=== PATIENT | female | born 1945 | race African-American/Black ===

== ENCOUNTER 2017-09-28 08:32 | Observation (INO) | payer OTHER ==
[2017-09-28] VITALS (7 sets, daily range): BP systolic 138–176; BP diastolic 72–83; PULSE 77–92; RESP 16–18; TEMP 97.6–98.9; O2SAT 92–97
[~2017-09-28] VITALS: Ht 172.7 cm; Wt 127.0 kg
[~2017-09-28 08:32] MED LIST: ECOT81TA2 PO; GLUCTAB PO; HYDR12.56 PO; LINA145C PO; METO25 PO; MOTI25CH PO; NOVO7030P2 SQ; OMEP20TA PO; PRAV20TA67 PO; SYNT88TA PO; TREN400T PO; VASO10TA8 PO
[2017-09-28] MEDS ORDERED: LEVO50TA4 PO (08:56)
[2017-09-28] MEDS ORDERED: DICY10CA12 PO (08:56)
[2017-09-28] MEDS ORDERED: HYDR12.57 PO (08:56)
[2017-09-28] MEDS ORDERED: ASPI81TA23 PO (08:56)
[2017-09-28] MEDS ORDERED: METF500T PO (08:56)
[2017-09-28] MEDS ORDERED: NOVO7030P2 SQ (08:56)
[2017-09-28] MEDS ORDERED: LOVA40TA PO (08:56)
[2017-09-28] MEDS ORDERED: METO25TA3 PO (08:56)
[2017-09-28] MEDS ORDERED: FAMOTIDINE 20 MG/2 ML VIAL IV PUSH ONE ×2 (09:00→17:15)
[2017-09-28] MEDS ORDERED: diphenhydrAMINE HCL 50 MG/ML VIAL IVP ONE (09:00)
[2017-09-28] MEDS ORDERED: methylPREDNISolone SOD SUCC 125 MG/2 ML VIAL IV PUSH ONE (09:00)
[2017-09-28] MEDS ORDERED: SODIUM CHLORIDE 0.9% FLUSH 10 ML FLUSH IV FLUSH PRN ×2 (09:00→12:15)
--- NOTE | 2017-09-28 09:02 | PD ---
HPI Chief Complaint: ENT Complaint Time Seen by Provider: 08:56 Travel History International Travel<30 days: No Contact w/Intl Traveler<30days: No Traveled to known affect area: No History of Present Illness HPI 72-year-old female patient with multiple medical issues, currently on gabapentin because of neuropathy, had an allergic reaction to in the past, but was restarted 3 days ago by physician, and today woke up feeling like she is having sore throat, feels like her throat is swelling. She denies any difficulty swallowing, trouble breathing, or drooling. She denies any rashes or other issues. She states that the same thing has happened in the past when she took it. Modifying Factors: None Associated Signs & Symptoms: Throat swelling, discomfort after taking medication that she was allergic to in the past Risk Factors: None PFSH Past Medical History Arthritis: Yes Heart Rhythm Problems: No Cancer: Yes (UTERINE) Cardiac Catheterization: Yes Cardiovascular Problems: Yes ([place], [place]) High Cholesterol: Yes Chemotherapy: No Chest Pain: Yes (SINUS PAUSE) Congestive Heart Failure: No Cerebrovascular Accident: No Diabetes: Yes Patient Takes Glucophage: Yes Endocrine: Yes Gastrointestinal Disorders: Yes (GERD) GERD: Yes Genitourinary: No Headaches: Yes Hepatitis: No Hiatal Hernia: Yes Hypertension: Yes Immune Disorder: No Musculoskeletal: Yes (ARTHRITIS) Neurologic: Yes (VERTIGO) Psychiatric: No Reproductive: No Respiratory: Yes (SLEEP APNEA/ CPAP) Radiation Therapy: No Sleep Apnea: Yes ( ) Thyroid Disease: Yes Past Surgical History AICD: No Cardiac Surgery: Yes Coronary Artery Bypass Graft: No Gynecologic Surgery: Yes (TUBAL LIG., HYSTERECTOMY) Joint Replacement: No Pacemaker: No Other Surgery: Yes Family History Family Myocardial Infarction: Yes Social History Alcohol Use: No Tobacco Use: No Substance Use: No Allergies-Medications (Allergen,Severity, Reaction): Coded Allergies: Sulfa (Sulfonamide Antibiotics) (Unverified Allergy, Severe, Itching, 09/28) codeine (Unverified Allergy, Severe, 09/28/17) gabapentin (Verified Allergy, Severe, upper airway swelling, 09/28/17) penicillin G (Unverified Allergy, Severe, HIVES, 09/28/17) Reported Meds & Prescriptions Reported Meds & Active Scripts Active Reported Lovastatin 40 Mg Tab 40 Mg PO DAILY Novolin 70-30 Inj (Insulin Human Isoph/Insulin Regular) 1,000 Unit/10 Ml Vial 20 Units SQ DAILY Levothyroxine (Levothyroxine Sodium) 50 Mcg Tab 50 Mcg PO DAILY Metformin (Metformin HCl) 500 Mg Tab 500 Mg PO BIDPC Dicyclomine (Dicyclomine HCl) 10 Mg Cap 10 Mg PO QID Metoprolol Tartrate 25 Mg Tab 12.5 Mg PO BID Hydrochlorothiazide 12.5 Mg Cap 12.5 Mg PO DAILY Aspirin EC (Aspirin) 81 Mg Tabdr 81 Mg PO DAILY Review of Systems Except as stated in HPI: all other systems reviewed are Neg Physical Exam Narrative GENERAL: Well-developed elderly -Turkish female patient currently in mild distress. Awake and oriented 3. SKIN: Focused skin assessment warm/dry. HEAD: Atraumatic. Normocephalic. EYES: Pupils equal and round. No scleral icterus. No injection or drainage. ENT: Mucosa pink and moist. No erythema or exudates. But there is notable posterior pharyngeal edema. Airway patent. NECK: Trachea midline. No JVD. CARDIOVASCULAR: Regular rate and rhythm. No murmur appreciated. RESPIRATORY: No accessory muscle use. Clear to auscultation. Breath sounds equal bilaterally. GASTROINTESTINAL: Abdomen soft, non-tender, nondistended. Hepatic and splenic margins not palpable. MUSCULOSKELETAL: No obvious deformities. No clubbing. No cyanosis. No edema. NEUROLOGICAL: Awake and alert. No obvious cranial nerve deficits. Motor grossly within normal limits. Normal speech. PSYCHIATRIC: Appropriate mood and affect; insight and judgment normal. Data Data Last Documented VS Vital Signs Date Time Temp Pulse Resp B/P (MAP) Pulse Ox O2 Delivery O2 Flow Rate FiO2 09/28/17 09:51 77 17 138/74 (95) 96 Room Air 09/28/17 08:36 97.6 Orders Orders Ecg Monitoring (09/28/17 08:56) Iv Access Insert/Monitor (09/28/17 08:56) Oximetry (09/28/17 08:56) Diphenhydramine Inj (Benadryl Inj) (09/28/17 09:00) Methylprednisolone So Succ Inj (Solumedr (09/28/17 09:00) Famotidine Inj (Pepcid Inj) (09/28/17 09:00) Sodium Chloride 0.9% Flush (Ns Flush) (09/28/17 09:00) Basic Metabolic Panel (Bmp) (09/28/17 12:03) Complete Blood Count With Diff (09/28/17 12:03) Sodium Chloride 0.9% Flush (Ns Flush) (09/28/17 12:15) Admit Order (Ed Use Only) (09/28/17 12:26) Labs Laboratory Tests Test 09/28/17 12:00 [facility] Medical Decision Making Medical Screen Exam Complete: Yes Emergency Medical Condition: Yes Medical Record Reviewed: Yes Differential Diagnosis Allergic reaction Narrative Course I suspect that this is a allergic reaction to gabapentin. I have given her Solu -Medrol, Benadryl, and Zantac IV. Vital signs are stable and actually she is hypertensive. I want to be cautious with giving her epinephrine right now considering her cardiac history and fairly elevated blood pressure already. Patient was observed for 3 hours. Symptoms are improving and she was evaluated several times by me, however, she is still having some edema in the posterior pharynx. At this point, I am uncomfortable with releasing her the way she is. My plan would be to admit her as an observation for further evaluation and treatment. I have talked to Dr. Roche for admission. Diagnosis Primary Impression: Allergic reaction caused by a drug Admitting Information Admitting Physician Requests: Admit Balwinder Raphael MD Sep 28, 2017 09:02
[2017-09-28 12:30] LABS: AUTOMATED NEUTROPHIL # 4.3 TH/MM3 (1.8-7.7); BASOPHIL # 0.1 TH/MM3 (0-0.2); BASOPHIL % 1.3 % (0.0-2.0); EOSINOPHIL # 0.6 TH/MM3 (0-0.4); EOSINOPHIL % 6.6 % (0.0-4.0); HEMATOCRIT 41.5 % (35.0-46.0); HEMOGLOBIN 13.1 GM/DL (11.6-15.3); LYMPH % 41.4 % (9.0-44.0); LYMPHOCYTE # 3.9 TH/MM3 (1.0-4.8); MEAN CELL VOLUME 90.5 FL (80.0-100.0); MEAN CORPUSCULAR HEMOGLOBIN 28.7 PG (27.0-34.0); MEAN CORPUSCULAR HGB CONC 31.7 % (32.0-36.0); MEAN PLATELET VOLUME 9.1 FL (7.0-11.0); MONO % 5.2 % (0.0-8.0); MONOCYTE # 0.5 TH/MM3 (0-0.9); NEUT % 45.5 % (16.0-70.0); PLATELET COUNT 277 TH/MM3 (150-450); RED BLOOD COUNT 4.58 MIL/MM3 (4.00-5.30); RED CELL DISTRIBUTION WIDTH 14.2 % (11.6-17.2); WHITE BLOOD COUNT 9.4 TH/MM3 (4.0-11.0)
[2017-09-28 13:01] LABS: BICARBONATE 27.8 MEQ/L (21.0-32.0); CALCIUM 9.6 MG/DL (8.5-10.1); CREATININE 0.79 MG/DL (0.50-1.00)
--- NOTE | 2017-09-28 14:34 | HHI.HP ---
[facility] Primary Care Physician Loraine Low MD Admission Diagnosis Allergic reaction to gabapentin Diagnoses: Chief Complaint: Swollen tongue, trouble breathing Travel History International Travel<30 Days: No Contact w/Intl Traveler <30 Da: No Traveled to Known Affected Are: No History of Present Illness 72-year-old black female being admitted for angioedema Patient was in her usual state of health until sometime last night when she woke up being very short of breath, noted that her tongue was very swollen as well as her cheeks and her chin, felt like she could not breathe. She took her dentures out and still noted difficulty breathing at the level of her neck. Denies having any chest pain, nausea, vomiting, or diarrhea. Was brought to the emergency department by her daughter. In the emergency department she was noted to have an edematous posterior pharynx, was given IV Zantac, benadryl, and Solu-Medrol with partial improvement. Patient reports that she restarted taking gabapentin about 3 days ago with her last dose being at bedtime last night. Patient reports having similar episode sometime in the past when she started taking gabapentin. Per the ER physician report, the patient's PCP doubted the gabapentin causing her prior episode of angioedema and attempted to do another trial of it. Patient denies taking lisinopril. Denies being stung by any insect. Denies having any autoimmune diseases such as lupus or rheumatoid arthritis. Review of Systems Except as stated in HPI: all other systems reviewed are Neg Past Family Social History Past Medical History Diabetes Hypothyroidism CAD Allergies: Coded Allergies: Sulfa (Sulfonamide Antibiotics) (Unverified Allergy, Severe, Itching, 09/28) codeine (Unverified Allergy, Severe, 09/28/17) gabapentin (Verified Allergy, Severe, upper airway swelling, 09/28/17) penicillin G (Unverified Allergy, Severe, HIVES, 09/28/17) Family History Diabetes Social History Lives with her daughter, denies smoking, denies drinking Physical Exam Vital Signs Vital Signs Date Time Temp Pulse Resp B/P (MAP) Pulse Ox O2 Delivery O2 Flow Rate FiO2 09/28/17 13:49 97.7 92 16 176/83 (114) 96 09/28/17 09:51 77 17 138/74 (95) 96 Room Air 09/28/17 09:13 89 96 Room Air 09/28/17 08:36 97.6 78 18 172/81 (111) Physical Exam VS: afebrile GENERAL: Elderly obese black female, lying in bed, no acute distress SKIN: Warm and dry. EYES: No scleral icterus. No injection or drainage. ENT: No nasal bleeding or discharge. Mucous membranes pink and moist. Has dentures in place, after dentures are removed, still has mildly edematous soft palate and posterior pharynx, tongue is mildly edematous CARDIOVASCULAR: Regular rate and rhythm. 4/6 ejection murmur RESPIRATORY: No accessory muscle use. Clear to auscultation. Breath sounds equal bilaterally. GASTROINTESTINAL: Abdomen soft, non-tender, nondistended. Extremities: No clubbing, cyanosis, or edema. No obvious deformities. MUSCULOSKELETAL: adequate muscle bulk and tone for age and habitus NEUROLOGICAL: Awake and alert. No obvious cranial nerve deficits. No facial droop nor slurred speech noted. PSYCHIATRIC: Appropriate mood and affect; insight and judgment normal. Laboratory Laboratory Tests Test 09/28/17 12:00 White Blood Count 9.4 Red Blood Count 4.58 Hemoglobin 13.1 Hematocrit 41.5 Mean Corpuscular Volume 90.5 Mean Corpuscular Hemoglobin 28.7 Mean Corpuscular Hemoglobin Concent 31.7 Red Cell Distribution Width 14.2 Platelet Count 277 Mean Platelet Volume 9.1 Neutrophils (%) (Auto) 45.5 Lymphocytes (%) (Auto) 41.4 Monocytes (%) (Auto) 5.2 Eosinophils (%) (Auto) 6.6 Basophils (%) (Auto) 1.3 Neutrophils # (Auto) 4.3 Lymphocytes # (Auto) 3.9 Monocytes # (Auto) 0.5 Eosinophils # (Auto) 0.6 Basophils # (Auto) 0.1 CBC Comment DIFF FINAL Differential Comment Blood Urea Nitrogen 14 Creatinine 0.79 Random Glucose 85 Calcium Level 9.6 Sodium Level 138 Potassium Level 4.3 Chloride Level 102 Carbon Dioxide Level 27.8 Anion Gap 8 Estimat Glomerular Filtration Rate 86 Result Diagram: 09/28/17 1200 09/28/17 1200 Caprini VTE Risk Assessment Caprini VTE Risk Assessment: Mod/High Risk (score >= 2) Caprini Risk Assessment Model Point Value = 1 Point Value = 2 Point Value = 3 Point Value = 5 Age 41-60 Minor surgery BMI > 25 kg/m2 Swollen legs Varicose veins or History of unexplained or recurrent spontaneous Oral contraceptives or hormone replacement Sepsis (< 1 month) Serious lung disease, including pneumonia (< 1 month) Abnormal pulmonary function Acute myocardial infarction Congestive heart failure (< 1 month) History of inflammatory bowel disease Medical patient at bed rest Age 61-74 Arthroscopic surgery Major open surgery (> 45 min) Laparoscopic surgery (> 45 min) Malignancy Confined to bed (> 72 hours) Immobilizing plaster cast Central venous access Age >= 75 History of VTE Family history of VTE Factor V Leiden Prothrombin [id number] Lupus anticoagulant Anticardiolipin antibodies Elevated serum homocysteine Heparin-induced thrombocytopenia Other congenital or acquired thrombophilia Stroke (< 1 month) Elective arthroplasty Hip, pelvis, or leg fracture Acute spinal cord injury (< 1 month) Prophylaxis Regimen Total Risk Factor Score Risk Level Prophylaxis Regimen 0-1 Low Early ambulation 2 Moderate Order ONE of the following: *Sequential Compression Device (SCD) *Heparin 5000 units SQ BID 3-4 Higher Order ONE of the following medications: *Heparin 5000 units SQ TID *Enoxaparin/Lovenox 40 mg SQ daily (WT < 150 kg, CrCl > 30 mL/min) *Enoxaparin/Lovenox 30 mg SQ daily (WT < 150 kg, CrCl > 10-29 mL/min) *Enoxaparin/Lovenox 30 mg SQ BID (WT < 150 kg, CrCl > 30 mL/min) AND/OR *Sequential Compression Device (SCD) 5 or more Highest Order ONE of the following medications: *Heparin 5000 units SQ TID (Preferred with Epidurals) *Enoxaparin/Lovenox 40 mg SQ daily (WT < 150 kg, CrCl > 30 mL/min) *Enoxaparin/Lovenox 30 mg SQ daily (WT < 150 kg, CrCl > 10-29 mL/min) *Enoxaparin/Lovenox 30 mg SQ BID (WT < 150 kg, CrCl > 30 mL/min) AND *Sequential Compression Device (SCD) Assessment and Plan Assessment and Plan 72-year-old black female being admitted for angioedema Angioedema -Likely drug-induced, stabilized after ER, monitor for another 12 hours -We will administer additional Decadron tonight, keep on telemetry -Permanently avoid gabapentin at this point -Nursing bedside swallow as well as speech therapy evaluation, will perform a trial with clear liquids -may order additional benadryl and pepcid if flares up again Obstructive sleep apnea -CPAP/BiPAP tonight CAD/hypoTSH/HYL -May resume home Synthroid, Lopressor, aspirin if able to tolerate p.o. pills Diabetes -Start low-dose sliding scale with Accu-Cheks and start low-dose Levemir especially given that the patient will be on steroids Loveshayx Db Trejo MD Sep 28, 2017 14:34
[2017-09-28] MEDS ORDERED: DEXTROSE 50% IN WATER 50 ML VIAL(D50) IV PUSH PRN (14:45)
[2017-09-28] MEDS ORDERED: GLUCAGON 1 MG/ML VIAL OTHER PRN (14:45)
[2017-09-28] MEDS ORDERED: ACETAMINOPHEN 500 MG CPLT PO ONE (17:00)
[2017-09-28] MEDS ORDERED: RESP: ALBUTEROL 2.5 MG/IPRATROPIUM 0.5 MG NEB (SCH) NEB ONE (17:15)
[2017-09-28] MEDS ORDERED: diphenhydrAMINE HCL 50 MG/ML VIAL IM ONE (17:15)
[2017-09-28] MEDS: DICYCLOMINE HCL 10 MG CAP PO SCH ×2 (18:19→21:37)
[2017-09-28] MEDS: INSULIN NovoLIN REGULAR SUPPLEMENTAL SCALE SQ SCH ×2 (18:22→20:57)
[2017-09-28] MEDS ORDERED: INSULIN DETEMIR 100 UNITS/ML VIAL SQ SCH (21:00)
[2017-09-28] MEDS ORDERED: DEXAMETHASONE SOD PHOS 4 MG/ML VIAL IV PUSH ONE (21:00)
[2017-09-28] MEDS ORDERED: ENOXAPARIN SODIUM 30 MG/0.3 ML SYRINGE SQ SCH (21:00)
[2017-09-28] MEDS: METOPROLOL TARTRATE 25 MG TAB PO SCH (21:36)
[2017-09-29] VITALS (7 sets, daily range): BP systolic 124–157; BP diastolic 62–74; PULSE 60–87; RESP 18–19; TEMP 97.7–98.6; O2SAT 93–97
[2017-09-29] MEDS ORDERED: PRAVASTATIN SOD 40 MG TAB PO SCH (09:00)
[2017-09-29] MEDS ORDERED: LEVOTHYROXINE SODIUM 50 MCG TAB PO SCH (09:00)
[2017-09-29] MEDS ORDERED: HYDROCHLOROTHIAZIDE 12.5 MG CAP PO SCH (09:00)
[2017-09-29] MEDS ORDERED: ASPIRIN EC 81 MG TABEC PO SCH (09:00)
[2017-09-29] MEDS: INSULIN NovoLIN REGULAR SUPPLEMENTAL SCALE SQ SCH ×2 (09:20→13:11)
[2017-09-29] MEDS: DICYCLOMINE HCL 10 MG CAP PO SCH ×2 (09:21→13:11)
[2017-09-29] MEDS: METOPROLOL TARTRATE 25 MG TAB PO SCH (09:21)
--- NOTE | 2017-09-29 10:29 | HHI.PR ---
Subjective Remarks Follow up angioedema. Patient states that she feels much better today. No dyspnea. Ate breakfast with no difficulty. Wants to go home. Objective Vitals Vital Signs Date Time Temp Pulse Resp B/P (MAP) Pulse Ox O2 Delivery O2 Flow Rate FiO2 09/29/17 08:38 97.7 68 18 157/68 (97) 95 09/29/17 04:11 97 21 09/29/17 04:00 98.1 67 18 124/62 (82) 96 09/29/17 00:00 98.6 87 18 149/74 (99) 93 09/28/17 22:33 97 21 09/28/17 20:00 98.9 90 18 150/72 (98) 92 09/28/17 16:00 98.6 90 16 148/78 (101) 94 09/28/17 13:49 97.7 92 16 176/83 (114) 96 Result Diagram: 09/28/17 1200 09/28/17 1200 Objective Remarks General: Obese female in no acute distress. HEENT: Mild tenderness of the anterior neck. Heart: Regular rate and rhythm. No murmur. Lungs: Clear to auscultation bilaterally. No wheezes, rales, or rhonchi. Breathing is nonlabored. Abdomen: Soft, nontender, nondistended. Extremities: No lower extremity edema. Psych: Alert and oriented. Neuro: Normal speech. No focal deficits noted. Procedures None Urinary Catheter: No Vascular Central Line Catheter: No A/P Assessment and Plan 1. Angioedema: Likely secondary to gabapentin. Patient received Decadron. Symptoms have improved significantly. She passed her swallowing evaluation this morning. Tolerating diet. 2. Obstructive sleep apnea: CPAP at night. 3. Coronary artery disease: Asymptomatic. Continue beta-dee dee, aspirin. 4. Hyperlipidemia: Continue statin. 5. Hypothyroidism: Continue Synthroid. 6. Diabetes mellitus: Continue Levemir. Monitor Accu-Cheks and cover with sliding scale insulin. 7. Hypertension: Continue HCTZ, Lopressor. 8. DVT prophylaxis: Lovenox. Discharge Planning Discharge home in stable condition. Follow-up with PCP. Diabetic diet. Activity as tolerated. Hill Michelle MD Sep 29, 2017 10:29
[2017-09-29] MEDS ORDERED: ACETAMINOPHEN 500 MG CPLT PO PRN (10:30)
--- NOTE | 2017-09-29 10:31 | HHI.DCPOC ---
Discharge Care Plan Diagnosis: (1) Angioedema (2) Allergic reaction caused by a drug Goals to Promote Your Health * To prevent worsening of your condition and complications * To maintain your health at the optimal level Directions to Meet Your Goals Take your medications as prescribed Follow your dietary instruction Follow activity as directed Keep your appointments as scheduled Take your immunizations and boosters as scheduled If your symptoms worsen call your PCP, if no PCP go to Urgent Care Center or Emergency Room Smoking is Dangerous to Your Health. Avoid second hand smoke Call the 24-hour hour crisis hotline for domestic abuse at Hill Michelle MD Sep 29, 2017 10:30
[2017-09-29] MEDS ORDERED: EPIP0.3I IM (10:33)
[2017-09-29] MEDS ORDERED: PRED5PAK PO (10:33)
== END 2017-09-29 14:00 | disposition home or self-care (01) ==
LOC: NEPE 08:32 → NEDA 12:28 → N05B 13:47
PROVIDERS: ADMIT Family Medicine; ATTEND Family Medicine
DX: T78.3XXA Angioneurotic edema, initial encounter (principal); T42.6X5A Adverse effect of other antiepileptic and sedative-hypnotic drugs, initial encounter; G62.9 Polyneuropathy, unspecified; E11.9 Type 2 diabetes mellitus without complications; E03.9 Hypothyroidism, unspecified; I25.10 Atherosclerotic heart disease of native coronary artery without angina pectoris; G47.33 Obstructive sleep apnea (adult) (pediatric); E78.5 Hyperlipidemia, unspecified; I10 Essential (primary) hypertension
CPT/HCPCS: 80048; 82948; 85025; 92610; 94003; 94640; 96372; 96374; 96375; 96376; 99285; G0378; G8996; G8997; J1100; J1200; J1650; J2930

== ENCOUNTER 2017-11-24 17:16 | Observation (INO) ==
[2017-11-24] MEDS ORDERED: MethylPREDNISolone Sod Succinate Inj 125 MG/2 ML Vial IV.PUSH ONE (18:00)
[2017-11-24] MEDS ORDERED: Sod Chloride 0.9% Inj 1,000 ML IV.SIG ONE (18:01)
--- NOTE | 2017-11-24 18:06 | ED ---
HPI General Chief complaint: Allergic Reaction Stated complaint: Swelling to lips Time Seen by Provider: 11/24/17 17:54 Source: patient and family Mode of arrival: ambulatory Limitations: no limitations History of Present Illness HPI narrative: Patient is a 72-year-old female presenting to the emergency department for evaluation of a possible allergic reaction. Patient presents with edema to her upper lip, lower lip and left cheek adjacent to her lips. Patient states she feels some chest tightness but denies any shortness of breath , dysphasia or urticaria. Symptoms started 10 AM this morning. Patient has not taken any Benadryl prior to arrival. Patient states the same symptoms happened last month and they thought it was from an allergy to gabapentin however patient has not been taking this and the symptoms returned. Symptom onset was sudden, symptoms are moderate in nature. There are no alleviating factors, unknown exacerbating factors. MD complaint: allergic reaction and facial swelling Onset (ago): hour(s) Exposure: unknown Symptoms: facial swelling and lip swelling Severity: moderate Treatment prior to arrival: none Previous Allergic Reaction History: prior ED visit(s) and angioedema Related Data Home Medications Medication Instructions Recorded Confirmed aspirin 81 mg PO DAILY 11/24/17 11/24/17 dicyclomine 10 mg PO TID 11/24/17 11/24/17 dicyclomine 20 mg PO HS 11/24/17 11/24/17 hydrochlorothiazide 12.5 mg PO DAILY 11/24/17 11/24/17 insulin asp prt-insulin aspart 20 unit SUB-Q QAM 11/24/17 11/24/17 [Novolog Mix 70-30 U-100 Insuln] levothyroxine 50 mcg PO DAILY 11/24/17 11/24/17 lovastatin 40 mg PO QPM 11/24/17 11/24/17 metformin 500 mg PO BID 11/24/17 11/24/17 metoprolol tartrate 12.5 mg PO BID 11/24/17 11/24/17 polyethylene glycol 3350 [Miralax] 17 gm PO DAILY PRN 11/24/17 11/24/17 Allergies Allergy/AdvReac Type Severity Reaction Status Date / Time codeine Allergy Severe Hives Verified 11/24/17 18:21 gabapentin Allergy Severe upper Verified 09/28/17 08:58 airway swelling penicillin G Allergy Severe HIVES Verified 11/24/17 18:21 Sulfa (Sulfonamide Allergy Severe Itching Verified 11/24/17 18:21 Antibiotics) Review of Systems ROS: all other systems reviewed are negative Cardiovascular Reports chest pain PMFSH History History Provided By: Patient Medical History Medical History Diabetes (Acute) H/O: hysterectomy (Acute) HTN (hypertension) (Acute) High cholesterol (Acute) Thyroid disease (Acute) Surgical History Surgical History Hx of cholecystectomy (Acute) Total knee replacement status (Acute) Family History Family History Mother Hypertension Social History Social History Substance History: No History of Abuse Second Hand Smoke Exposure: No Smoking Status: Never smoker How Often Do You Have a Drink Containing Alcohol: Never Recent Travel in [facility] within the Last 8 Weeks: No Recent Out of Country Travel within the Last 8 Weeks: No Exam Narrative Exam Narrative: GENERAL: Obese, well-developed, alert -S[place]i female. Presenting in no acute distress. SKIN: Focused skin assessment warm/dry. HEAD: Atraumatic. Normocephalic. MOUTH: Mucous membranes moist, no lesions, tongue and gums appear normal. Angioedema to the upper lip and to the left lower lip and cheek. EYES: Pupils equal and round. No scleral icterus. No injection or drainage. ENT: No nasal bleeding or discharge. Mucous membranes pink and moist. Airway is patent, uvula midline. NECK: Trachea midline. No JVD. CARDIOVASCULAR: Regular rate and rhythm. No murmur appreciated. RESPIRATORY: No accessory muscle use. Clear to auscultation. Breath sounds equal bilaterally, diminished in bases. No stridor noted. GASTROINTESTINAL: Abdomen soft, non-tender, nondistended. Hepatic and splenic margins not palpable. MUSCULOSKELETAL: No obvious deformities. No clubbing. No cyanosis. No edema. NEUROLOGICAL: Awake and alert. No obvious cranial nerve deficits. Motor grossly within normal limits. Normal speech. PSYCHIATRIC: Appropriate mood and affect; insight and judgment normal. Course Initial Documented Vital Signs Temperature 98.3 F 11/24/17 17:23 Pulse Rate 85 11/24/17 17:23 Respiratory Rate 19 11/24/17 17:23 Blood Pressure 156/70 H 11/24/17 17:23 Pulse Oximetry 95 11/24/17 17:23 Last Documented Vital Signs Temperature 97.7 F 11/25/17 04:00 Pulse Rate 77 11/25/17 04:00 Respiratory Rate 16 11/25/17 04:00 Blood Pressure 119/57 L 11/25/17 04:00 Pulse Oximetry 97 11/25/17 04:00 Medical Decision Making PATRICIA Attestation PATRICIA supervised visit: Yes Attestation: I, Dr. Ashley, have reviewed the advance practice practitioner's documentation and am in agreement, met with the patient face to face, made the diagnosis, and the medical decision making was done by me. *My assessment and Findings: angioedema - she has received epi, dexamethasone, pepcid as well as benadryl MDM Narrative Medical decision making narrative: Patient is presenting with angioedema started 10 AM this morning. Patient's vital signs are stable, her airway is patent. Patient was given Solu-Medrol, Benadryl, epinephrine. IV fluids and chest x-ray ordered. IV access was established, patient was placed on telemetry monitoring continuous pulse oximetry. Labs reviewed, no acute findings in a fight. Specifically patient has no eosinophilia. Patient reported that her sister also has recurring angioedema. Patient was reassessed, the edema started to resolve, patient reports feeling better. Patient will be kept under observation. Discussed with Dr. Orellana who accepted admission. Patient and family advised on plan of care, patient is agreeable to plan. Differential Diagnosis Differential Diagnosis: Angioedema versus anaphylaxis versus allergic reaction versus contact dermatitis versus other Medical Records Medical records reviewed: Yes I reviewed the patient's medical records. Lab Data Result diagrams: 11/24/17 18:13 11/24/17 18:13 Lab Results 11/24/17 11/24/17 11/24/17 Range/Units 18:13 18:13 18:13 WBC 9.2 (4.0-11.0) th/mm3 RBC 4.45 (4.00-5.30) mil/mm3 Hgb 12.8 (11.6-15.3) gm/dL Hct 40.0 (35.0-46.0) % MCV 89.9 (80.0-100.0) fL MCH 28.8 (27.0-34.0) pg MCHC 32.0 (32.0-36.0) % RDW 14.4 (11.6-17.2) % Plt Count 276 (150-450) th/mm3 MPV 8.4 (7.0-11.0) fL Neut % (Auto) 78.7 H (16.0-70.0) % Lymph % (Auto) 16.7 (9.0-44.0) % Davison % (Auto) 2.8 (0.0-8.0) % Eos % (Auto) 1.0 (0.0-4.0) % Baso % (Auto) 0.8 (0.0-2.0) % Neut # (Auto) 7.3 (1.8-7.7) th/mm3 Lymph # (Auto) 1.5 (1.0-4.8) th/mm3 Davison # (Auto) 0.3 (0.0-0.9) th/mm3 Eos # (Auto) 0.1 (0.0-0.4) th/mm3 Baso # (Auto) 0.1 (0.0-0.2) th/mm3 WBC Differential . Differential Comment Auto diff final Sodium 137 (136-145) meq/L Potassium 4.3 (3.5-5.1) meq/L Chloride 100 (98-107) meq/L Carbon Dioxide 27.6 (21.0-32.0) meq/L Anion Gap 9 (5-15) meq/L BUN 15 (7-18) mg/dL Creatinine 0.89 (0.50-1.00) mg/dL Estimated GFR 75 L (>89) mL/min POC Glucose (68-110) mg/dl Random Glucose 137 H (74-106) mg/dL Calcium 9.7 (8.5-10.1) mg/dL Total Bilirubin 0.3 (0.2-1.0) mg/dL AST 18 (15-37) U/L ALT 16 (10-53) U/L Alkaline Phosphatase 84 (45-117) U/L Troponin I Less than 0.02 L (0.02-0.05) ng/mL Total Protein 7.7 (6.4-8.2) g/dL Albumin 3.6 (3.4-5.0) g/dL TSH (0.358-3.740) uIU/mL 11/24/17 11/24/17 Range/Units 18:13 22:38 WBC (4.0-11.0) th/mm3 RBC (4.00-5.30) mil/mm3 Hgb (11.6-15.3) gm/dL Hct (35.0-46.0) % MCV (80.0-100.0) fL MCH (27.0-34.0) pg MCHC (32.0-36.0) % RDW (11.6-17.2) % Plt Count (150-450) th/mm3 MPV (7.0-11.0) fL Neut % (Auto) (16.0-70.0) % Lymph % (Auto) (9.0-44.0) % Davison % (Auto) (0.0-8.0) % Eos % (Auto) (0.0-4.0) % Baso % (Auto) (0.0-2.0) % Neut # (Auto) (1.8-7.7) th/mm3 Lymph # (Auto) (1.0-4.8) th/mm3 Davison # (Auto) (0.0-0.9) th/mm3 Eos # (Auto) (0.0-0.4) th/mm3 Baso # (Auto) (0.0-0.2) th/mm3 WBC Differential Differential Comment Sodium (136-145) meq/L Potassium (3.5-5.1) meq/L Chloride (98-107) meq/L Carbon Dioxide (21.0-32.0) meq/L Anion Gap (5-15) meq/L BUN (7-18) mg/dL Creatinine (0.50-1.00) mg/dL Estimated GFR (>89) mL/min POC Glucose 212 H (68-110) mg/dl Random Glucose (74-106) mg/dL Calcium (8.5-10.1) mg/dL Total Bilirubin (0.2-1.0) mg/dL AST (15-37) U/L ALT (10-53) U/L Alkaline Phosphatase (45-117) U/L Troponin I (0.02-0.05) ng/mL Total Protein (6.4-8.2) g/dL Albumin (3.4-5.0) g/dL TSH 0.846 (0.358-3.740) uIU/mL Imaging Data Radiologist's impression: Chest X-Ray 11/24/17 18:00 CONCLUSION: No acute cardiopulmonary disease. Discharge Plan Discharge Disposition Patient Disposition: 30 Still Patient Discharge Condition Condition: Stable Discharge Details Diagnosis: Angio-edema Physicians Team ED Provider: Gisele Ashley ED Midlevel Provider: Tali Laura Primary Care Provider: Loraine Low Attending Provider: Rian Cardona Status ED Status: Left Department Discharge Information Discharge Date/Time: 11/24/17 21:25
--- NOTE | 2017-11-24 18:26 | XR ---
EXAM DATE: 11/24/2017 6:18 PM EDT AGE/SEX: 72 years / Female INDICATIONS: Short of breath. CLINICAL DATA: This is the patient's initial encounter. Patient reports that signs and symptoms have been present for 1 day and indicates a pain score of 0/10. MEDICAL/SURGICAL HISTORY: None. None. COMPARISON: [facility] – [place] AP, 06/14/2012. . FINDINGS: A single AP view of the chest demonstrates the lungs to be symmetrically aerated without evidence of mass, infiltrate or effusion. The cardiomediastinal contours are unremarkable. Osseous structures a re intact. CONCLUSION: No acute cardiopulmonary disease. Electronically signed by: Neto Mcmillan MD 11/24/2017 6:25 PM EDT
[2017-11-24 18:33] LABS: Hemoglobin 12.8 gm/dL (11.6-15.3); Lymph % (Auto) 16.7 % (9.0-44.0); Mean Corpuscular Hemoglobin 28.8 pg (27.0-34.0); Mean Corpuscular Volume 89.9 fL (80.0-100.0); Mean Platelet Volume 8.4 fL (7.0-11.0); Mono % (Auto) 2.8 % (0.0-8.0); Neut % (Auto) 78.7 % (16.0-70.0); Platelet Count 276 th/mm3 (150-450); Red Blood Count 4.45 mil/mm3 (4.00-5.30); Red Cell Distribution Width 14.4 % (11.6-17.2); White Blood Count 9.2 th/mm3 (4.0-11.0)
[2017-11-24 18:34] LABS: Baso # (Auto) 0.1 th/mm3 (0.0-0.2); Baso % (Auto) 0.8 % (0.0-2.0); Eos # (Auto) 0.1 th/mm3 (0.0-0.4); Lymph # (Auto) 1.5 th/mm3 (1.0-4.8); Mono # (Auto) 0.3 th/mm3 (0.0-0.9); Neut # (Auto) 7.3 th/mm3 (1.8-7.7)
[2017-11-24 18:40] LABS: Albumin 3.6 g/dL (3.4-5.0); Anion Gap 9 meq/L (5-15); Aspartate Aminotransferase 18 U/L (15-37); Blood Urea Nitrogen 15 mg/dL (7-18); Calcium 9.7 mg/dL (8.5-10.1); Carbon Dioxide 27.6 meq/L (21.0-32.0); Chloride 100 meq/L (98-107); Glomerular Filtration Rate 75 mL/min (>89); Glucose,Random 137 mg/dL (74-106); Potassium 4.3 meq/L (3.5-5.1); Sodium 137 meq/L (136-145)
[2017-11-24 18:41] LABS: Alanine Aminotransferase 16 U/L (10-53)
[2017-11-24 18:43] LABS: Alkaline Phosphatase 84 U/L (45-117); Total Protein 7.7 g/dL (6.4-8.2)
[2017-11-24] MEDS ORDERED: Acetaminophen 325 MG Tablet PO PRN (21:02)
[2017-11-24] MEDS ORDERED: Dextrose 50% in Water 50 ML Vial IV.PUSH PRN (21:05)
[2017-11-24] MEDS ORDERED: Dicyclomine 10 MG Capsule PO SCH (21:15)
--- NOTE | 2017-11-24 21:17 | P.HPIM ---
History of Present Illness Primary Care Physician: Loraine Low MD History of Present Illness: 72 y/o female with a histroy of DM, HLD, HTN, and hypothyroid presented to the ED with complaints of upper lip swelling. Patient states began this morning after she had taken all her medications prior to breakfast, states her upper lip and left side of her cheek started to swell and she was unable to drink her coffee. She states this did happen one month ago and was found the gabapentin was the issue. She denies any new meds or any changes in any foods that she has been eating. She denies any chest pain, sob, fever or chills. Review of Systems All other systems reviewed negative except as stated in HPI PMFSH - History History Provided By: Patient - Medical History Medical History: Medical History (Last Reviewed 11/24/17 @ 18:09 by JOSE Vazquez) Diabetes H/O: hysterectomy HTN (hypertension) High cholesterol Thyroid disease - Surgical History Surgical History: Surgical History (Last Reviewed 11/24/17 @ 18:09 by JOSE Vazquez) Hx of cholecystectomy Total knee replacement status - Family History Family History: Family History (Last Updated 11/24/17 @ 21:11 by JOSE Lino) Mother Hypertension - Tobacco History Second Hand Smoke Exposure: No Smoking Status: Never smoker - Alcohol History How Often Do You Have a Drink Containing Alcohol: Never - Substance Use History Substance History: No History of Abuse - Travel History Recent Travel in the [place] Within the Last 8 Weeks: No Recent Travel Out of the Country Within the Last 8 Weeks: No - Immunization History Tetanus Immunization: Unsure Hx Influenza Vaccine This Season: Yes Medications and Allergies Active Medications: Active Medications Acetaminophen (Tylenol) 650 mg PO Q4H PRN PRN Reason: Temp > 100.4 Aspirin (Ecotrin) 81 mg PO DAILY INDIO Dextrose (D50w Vial) 50 ml IV.PUSH UNSCH PRN PRN Reason: PER HYPOGLYCEMIA PROTOCOL Dicyclomine HCl (Bentyl) 10 mg PO TID INDIO Dicyclomine HCl (Bentyl) 20 mg PO HS INDIO Glucagon (Glucagon Inj) 1 mg OTHER PRN PRN PRN Reason: for Hypoglycemia Protocol Insulin Aspart (Novolog Mix 70/30 Inj) 20 units SQ QAM [facility]IO Levothyroxine Sodium (Synthroid) 50 mcg PO DAILY [facility]IO Metformin HCl (Glucophage) 500 mg PO BID [facility] Metoprolol Tartrate (Lopressor) 12.5 mg PO BID [facility] Non-Formulary Medication (Hydrochlorothiazide [Hydrochlorothiazide]) 12.5 mg PO DAILY [facility] Non-Formulary Medication (Lovastatin [Lovastatin]) 40 mg PO QPM [facility] Ondansetron HCl (Zofran Inj) 4 mg IV.PUSH Q6H PRN PRN Reason: NAUSEA OR VOMITING Polyethylene Glycol (Miralax) 17 gm PO DAILY PRN PRN Reason: Constipation Sodium Chloride (Ns Flush) 2 ml IV.FLUSH PRN PRN PRN Reason: FLUSH AFTER USING IV ACCESS Allergies Allergy/AdvReac Type Severity Reaction Status Date / Time codeine Allergy Severe Hives Verified 11/24/17 18:21 gabapentin Allergy Severe upper Verified 09/28/17 08:58 airway swelling penicillin G Allergy Severe HIVES Verified 11/24/17 18:21 Sulfa (Sulfonamide Allergy Severe Itching Verified 11/24/17 18:21 Antibiotics) Home Medications Medication Instructions Recorded Confirmed Type aspirin 81 mg PO DAILY 11/24/17 11/24/17 History dicyclomine 10 mg PO TID 11/24/17 11/24/17 History dicyclomine 20 mg PO HS 11/24/17 11/24/17 History hydrochlorothiazide 12.5 mg PO DAILY 11/24/17 11/24/17 History insulin asp prt-insulin aspart 20 unit SUB-Q QAM 11/24/17 11/24/17 History [Novolog Mix 70-30 U-100 Insuln] levothyroxine 50 mcg PO DAILY 11/24/17 11/24/17 History lovastatin 40 mg PO QPM 11/24/17 11/24/17 History metformin 500 mg PO BID 11/24/17 11/24/17 History metoprolol tartrate 12.5 mg PO BID 11/24/17 11/24/17 History polyethylene glycol 3350 [Miralax] 17 gm PO DAILY PRN 11/24/17 11/24/17 History Exam Vital signs: Vital Signs 11/24/17 17:23 11/24/17 18:06 11/24/17 18:15 Temperature 98.3 F Pulse Rate 85 81 Respiratory Rate 19 18 Blood Pressure 156/70 H 150/83 H Pulse Oximetry 95 96 96 Intake & Output 11/24/17 11/24/17 11/25/17 06:59 18:59 06:59 Weight 122.47 kg Narrative: GENERAL: This is a well-nourished, well-developed patient, in no apparent distress. SKIN: Angioedema to upper lip EYES: Pupils equal round and reactive, no scleral edema or drainage CARDIOVASCULAR: Regular rate and rhythm without murmurs, gallops, or rubs. RESPIRATORY: Clear to auscultation. Breath sounds equal bilaterally. No wheezes , rales, or rhonchi. GASTROINTESTINAL: Abdomen soft, non-tender, nondistended. Normal active bowel sounds MUSCULOSKELETAL: Extremities without clubbing, cyanosis, or edema. NEURO: Alert & Oriented x4 to person, place, time, situation. Moves all ext x4 Results - Labs CBC & Chem 7: 11/24/17 18:13 11/24/17 18:13 Labs: Short CBC 11/24/17 Range/Units 18:13 WBC 9.2 (4.0-11.0) th/mm3 Hgb 12.8 (11.6-15.3) gm/dL Hct 40.0 (35.0-46.0) % Plt Count 276 (150-450) th/mm3 BMP 11/24/17 18:13 Sodium 137 Potassium 4.3 Chloride 100 Carbon Dioxide 27.6 BUN 15 Creatinine 0.89 Calcium 9.7 Liver Function 11/24/17 Range/Units 18:13 Total Bilirubin 0.3 (0.2-1.0) mg/dL AST 18 (15-37) U/L ALT 16 (10-53) U/L Alkaline Phosphatase 84 (45-117) U/L Albumin 3.6 (3.4-5.0) g/dL - Imaging Impressions Chest X-Ray 11/24/17 18:00 CONCLUSION: No acute cardiopulmonary disease. Caprini VTE Risk Assessment Caprini VTE Risk Assessment: No/Low Risk (score <= 1) Caprini Risk Assessment Model: Point Value = 1 Point Value = 2 Point Value = 3 Point Value = 5 Age 41-60 Minor surgery BMI > 25 kg/m2 Swollen legs Varicose veins or History of unexplained or recurrent spontaneous Oral contraceptives or hormone replacement Sepsis (< 1 month) Serious lung disease, including pneumonia (< 1 month) Abnormal pulmonary function Acute myocardial infarction Congestive heart failure (< 1 month) History of inflammatory bowel disease Medical patient at bed rest Age 61-74 Arthroscopic surgery Major open surgery (> 45 min) Laparoscopic surgery (> 45 min) Malignancy Confined to bed (> 72 hours) Immobilizing plaster cast Central venous access Age >= 75 History of VTE Family history of VTE Factor V Leiden Prothrombin [id number] Lupus anticoagulant Anticardiolipin antibodies Elevated serum homocysteine Heparin-induced thrombocytopenia Other congenital or acquired thrombophilia Stroke (< 1 month) Elective arthroplasty Hip, pelvis, or leg fracture Acute spinal cord injury (< 1 month) Prophylaxis Regimen: Total Risk Factor Score Risk Level Prophylaxis Regimen 0-1 Low Early ambulation 2 Moderate Order ONE of the following: *Sequential Compression Device (SCD) *Heparin 5000 units SQ BID 3-4 Higher Order ONE of the following medications: *Heparin 5000 units SQ TID *Enoxaparin/Lovenox 40 mg SQ daily (WT < 150 kg, CrCl > 30 mL/min) *Enoxaparin/Lovenox 30 mg SQ daily (WT < 150 kg, CrCl > 10-29 mL/min) *Enoxaparin/Lovenox 30 mg SQ BID (WT < 150 kg, CrCl > 30 mL/min) AND/OR *Sequential Compression Device (SCD) 5 or more Highest Order ONE of the following medications: *Heparin 5000 units SQ TID (Preferred with Epidurals) *Enoxaparin/Lovenox 40 mg SQ daily (WT < 150 kg, CrCl > 30 mL/min) *Enoxaparin/Lovenox 30 mg SQ daily (WT < 150 kg, CrCl > 10-29 mL/min) *Enoxaparin/Lovenox 30 mg SQ BID (WT < 150 kg, CrCl > 30 mL/min) AND *Sequential Compression Device (SCD) Assessment and Plan - Plan 72 y/o female with a histroy of DM, HLD, HTN, and hypothyroid presented to the ED with complaints of upper lip swelling. Angioedema, patient with upper lip swelling Unknown etiology -Epinephrine, Solu-Medrol and Benadryl given in the ED, with improvement -Continue Solu-Medrol in Benadryl every 6 -Patient may benefit from outpatient digital media specialist -Check TSH Hypertension, chronic -Resume home medications, monitor vitals Diabetes, chronic -Resume home medications -Serial Accu-Cheks -Diabetic diet DVT prophylaxis: SCDs Discussed Condition With: Patient and RN
[2017-11-24] MEDS ORDERED: Polyethylene Glycol 3350 17 GM Packet PO PRN (22:00)
[2017-11-24] MEDS: MethylPREDNISolone Sod Succinate Inj 40 MG/ML Vial IV.PUSH SCH (23:02)
[2017-11-24] MEDS: Metoprolol Tartrate 25 MG Tablet PO SCH (23:02)
[2017-11-24] MEDS: Insulin Aspart Prot 70/30 1,000 UNITS/10 ML Vial SQ SCH (23:53)
[2017-11-25] MEDS ORDERED: Levothyroxine 50 MCG Tablet PO SCH (06:00)
[2017-11-25] MEDS: MethylPREDNISolone Sod Succinate Inj 40 MG/ML Vial IV.PUSH SCH ×2 (06:02→13:09)
[2017-11-25 07:39] LABS: Baso % (Auto) 0.2 % (0.0-2.0); Eos % (Auto) 0.1 % (0.0-4.0); Lymph # (Auto) 1.1 th/mm3 (1.0-4.8); Lymph % (Auto) 15.3 % (9.0-44.0); Mean Corpuscular HGB Conc 32.3 % (32.0-36.0); Mean Corpuscular Hemoglobin 29.4 pg (27.0-34.0); Mean Platelet Volume 9.1 fL (7.0-11.0); Mono # (Auto) 0.1 th/mm3 (0.0-0.9); Mono % (Auto) 1.2 % (0.0-8.0); Neut # (Auto) 6.2 th/mm3 (1.8-7.7); Neut % (Auto) 83.2 % (16.0-70.0); Platelet Count 251 th/mm3 (150-450); Red Blood Count 4.07 mil/mm3 (4.00-5.30); White Blood Count 7.5 th/mm3 (4.0-11.0)
[2017-11-25 07:53] LABS: Calcium 9.3 mg/dL (8.5-10.1); Carbon Dioxide 25.9 meq/L (21.0-32.0); Potassium 4.1 meq/L (3.5-5.1)
[2017-11-25] MEDS ORDERED: Dicyclomine 10 MG Capsule PO SCH (09:00)
[2017-11-25] MEDS: Metoprolol Tartrate 25 MG Tablet PO SCH (09:07)
[2017-11-25] MEDS: Insulin Aspart Prot 70/30 1,000 UNITS/10 ML Vial SQ SCH (09:08)
--- NOTE | 2017-11-25 12:32 | P.PN ---
Subjective Interval history: Patient is seen sitting on bed. She tells me that she is doing much better and she feels like her lip swelling is almost gone. Denies any difficulty swallowing or breathing. Physical Exam Vital signs: Vital Signs 11/24/17 17:23 11/24/17 18:06 11/24/17 18:15 Temperature 98.3 F Pulse Rate 85 81 Respiratory Rate 19 18 Blood Pressure 156/70 H 150/83 H Pulse Oximetry 95 96 96 11/24/17 22:34 11/25/17 04:00 11/25/17 08:00 Temperature 98.1 F 97.7 F 98.1 F Pulse Rate 85 77 93 H Respiratory Rate 18 16 20 Blood Pressure 140/75 119/57 L 182/79 H Pulse Oximetry 95 97 95 Intake & Output 11/24/17 11/25/17 11/25/17 18:59 06:59 18:59 Weight 122.47 kg Other: # Voids 2 Date of Last Bowel Movement 11/25/17 # Bowel Movements 1 Narrative: GENERAL: Well-nourished, well-developed adult female in no obvious distress. SKIN: Warm and dry. HEAD: Atraumatic. Normocephalic. CARDIOVASCULAR: Regular rate and rhythm. RESPIRATORY: No accessory muscle use. Clear to auscultation. Breath sounds equal bilaterally. GASTROINTESTINAL: Abdomen soft, non-tender, non-distended. Positive bowel sounds. MUSCULOSKELETAL: Extremities without clubbing, cyanosis, or edema. No obvious deformities. NEUROLOGICAL: Awake and alert. No obvious cranial nerve deficits. Motor grossly within normal limits. Normal speech. PSYCHIATRIC: Appropriate mood and affect; insight and judgment good. Results - Labs CBC & Chem 7: 11/25/17 06:00 11/25/17 06:00 Laboratory Results - last 24 hr 11/24/17 11/24/17 11/24/17 18:13 18:13 18:13 WBC 9.2 RBC 4.45 Hgb 12.8 Hct 40.0 MCV 89.9 MCH 28.8 MCHC 32.0 RDW 14.4 Plt Count 276 MPV 8.4 Neut % (Auto) 78.7 H Lymph % (Auto) 16.7 Burnett % (Auto) 2.8 Eos % (Auto) 1.0 Baso % (Auto) 0.8 Neut # (Auto) 7.3 Lymph # (Auto) 1.5 Burnett # (Auto) 0.3 Eos # (Auto) 0.1 Baso # (Auto) 0.1 WBC Differential . Differential Comment Auto diff final Sodium 137 Potassium 4.3 Chloride 100 Carbon Dioxide 27.6 Anion Gap 9 BUN 15 Creatinine 0.89 Estimated GFR 75 L POC Glucose Random Glucose 137 H Calcium 9.7 Total Bilirubin 0.3 AST 18 ALT 16 Alkaline Phosphatase 84 Troponin I Less than 0.02 L Total Protein 7.7 Albumin 3.6 TSH 11/24/17 11/24/17 11/25/17 18:13 22:38 06:00 WBC 7.5 RBC 4.07 Hgb 12.0 Hct 37.0 MCV 91.0 MCH 29.4 MCHC 32.3 RDW 14.0 Plt Count 251 MPV 9.1 Neut % (Auto) 83.2 H Lymph % (Auto) 15.3 Burnett % (Auto) 1.2 Eos % (Auto) 0.1 Baso % (Auto) 0.2 Neut # (Auto) 6.2 Lymph # (Auto) 1.1 Burnett # (Auto) 0.1 Eos # (Auto) 0.0 Baso # (Auto) 0.0 WBC Differential . Differential Comment Auto diff final Sodium Potassium Chloride Carbon Dioxide Anion Gap BUN Creatinine Estimated GFR POC Glucose 212 H Random Glucose Calcium Total Bilirubin AST ALT Alkaline Phosphatase Troponin I Total Protein Albumin TSH 0.846 11/25/17 11/25/17 06:00 08:22 WBC RBC Hgb Hct MCV MCH MCHC RDW Plt Count MPV Neut % (Auto) Lymph % (Auto) Burnett % (Auto) Eos % (Auto) Baso % (Auto) Neut # (Auto) Lymph # (Auto) Burnett # (Auto) Eos # (Auto) Baso # (Auto) WBC Differential Differential Comment Sodium 137 Potassium 4.1 Chloride 102 Carbon Dioxide 25.9 Anion Gap 9 BUN 15 Creatinine 0.88 Estimated GFR 76 L POC Glucose 197 H Random Glucose 146 H Calcium 9.3 Total Bilirubin AST ALT Alkaline Phosphatase Troponin I Total Protein Albumin TSH - Imaging Impressions Chest X-Ray 11/24/17 18:00 CONCLUSION: No acute cardiopulmonary disease. Assessment and Plan - Plan 72 y/o female with a histroy of DM, HLD, HTN, and hypothyroid presented to the ED with complaints of upper lip swelling. Angioedema, patient with upper lip swelling Unknown etiology -Improved. We will discharge today with Benadryl, Pepcid and 5 day course of prednisone. Patient to follow-up with her primary care for possible allergy testing. She tells me she does have an EpiPen. Hypertension, chronic -Resume home medications, monitor vitals Diabetes, chronic -Resume home medications -Serial Accu-Cheks -Diabetic diet DVT prophylaxis: SCDs Discussed Condition With: Patient and RN
--- NOTE | 2017-11-25 12:34 | P.DS ---
Date of admission: 11/24/17 19:39 Primary care physician: Loraine Low MD Attending physician on discharge: Rian Cardona Anticipated date of discharge: 11/25/17 Brief History from admission: 72 y/o female with a histroy of DM, HLD, HTN, and hypothyroid presented to the ED with complaints of upper lip swelling. Patient states began this morning after she had taken all her medications prior to breakfast, states her upper lip and left side of her cheek started to swell and she was unable to drink her coffee. She states this did happen one month ago and was found the gabapentin was the issue. She denies any new meds or any changes in any foods that she has been eating. She denies any chest pain, sob, fever or chills. DS: Diagnosis - Discharge Diagnosis (1) Angio-edema Status: Resolved DS: Summary Hospital Course: Patient is a 72-year-old -German female with a past medical history of diabetes, hyperlipidemia hypertension and hypothyroidism who came to the emergency room with a complaint of upper lip swelling. She denies starting any new medications or trying any new foods soaps or lotions. She does remember going to get an x-ray and think she may have come in contact with some cleaning fluid there. She has had one previous episode of facial and throat swelling in April 2017 which was attributed to gabapentin. Angioedema responded well to epinephrine, Solu-Medrol and Benadryl. She tells me that she does have an EpiPen that was issued to her in April with her initial episode of swelling. - Time Spent with Patient Total time spent providing and/or coordinating discharge services: Less than 30 minutes - Quality: VTE Deep Vein Thrombosis/Pulmonary Embolism Present on Admission: No Exam Vital signs: Vital Signs 11/24/17 17:23 11/24/17 18:06 11/24/17 18:15 Temperature 98.3 F Pulse Rate 85 81 Respiratory Rate 19 18 Blood Pressure 156/70 H 150/83 H Pulse Oximetry 95 96 96 11/24/17 22:34 11/25/17 04:00 11/25/17 08:00 Temperature 98.1 F 97.7 F 98.1 F Pulse Rate 85 77 93 H Respiratory Rate 18 16 20 Blood Pressure 140/75 119/57 L 182/79 H Pulse Oximetry 95 97 95 Intake & Output 11/24/17 11/25/17 11/25/17 18:59 06:59 18:59 Weight 122.47 kg Other: # Voids 2 Date of Last Bowel Movement 11/25/17 # Bowel Movements 1 Narrative: GENERAL: Well-nourished, well-developed adult female in no obvious distress. SKIN: Warm and dry. HEAD: Atraumatic. Normocephalic. CARDIOVASCULAR: Regular rate and rhythm. RESPIRATORY: No accessory muscle use. Clear to auscultation. Breath sounds equal bilaterally. GASTROINTESTINAL: Abdomen soft, non-tender, non-distended. Positive bowel sounds. MUSCULOSKELETAL: Extremities without clubbing, cyanosis, or edema. No obvious deformities. NEUROLOGICAL: Awake and alert. No obvious cranial nerve deficits. Motor grossly within normal limits. Normal speech. PSYCHIATRIC: Appropriate mood and affect; insight and judgment good. Results Procedures completed during hospitalization: none Labs on day of discharge: Labs from last 24 hours 11/25/17 11/25/17 11/25/17 08:22 06:00 06:00 WBC 7.5 RBC 4.07 Hgb 12.0 Hct 37.0 MCV 91.0 MCH 29.4 MCHC 32.3 RDW 14.0 Plt Count 251 MPV 9.1 Neut % (Auto) 83.2 H Lymph % (Auto) 15.3 Angelina % (Auto) 1.2 Eos % (Auto) 0.1 Baso % (Auto) 0.2 Neut # (Auto) 6.2 Lymph # (Auto) 1.1 Angelina # (Auto) 0.1 Eos # (Auto) 0.0 Baso # (Auto) 0.0 WBC Differential . Differential Comment Auto diff final Sodium 137 Potassium 4.1 Chloride 102 Carbon Dioxide 25.9 Anion Gap 9 BUN 15 Creatinine 0.88 Estimated GFR 76 L POC Glucose 197 H Random Glucose 146 H Calcium 9.3 Total Bilirubin AST ALT Alkaline Phosphatase Troponin I Total Protein Albumin TSH 11/24/17 11/24/17 11/24/17 22:38 18:13 18:13 WBC RBC Hgb Hct MCV MCH MCHC RDW Plt Count MPV Neut % (Auto) Lymph % (Auto) Angelina % (Auto) Eos % (Auto) Baso % (Auto) Neut # (Auto) Lymph # (Auto) Angelina # (Auto) Eos # (Auto) Baso # (Auto) WBC Differential Differential Comment Sodium Potassium Chloride Carbon Dioxide Anion Gap BUN Creatinine Estimated GFR POC Glucose 212 H Random Glucose Calcium Total Bilirubin AST ALT Alkaline Phosphatase Troponin I Less than 0.02 L Total Protein Albumin TSH 0.846 11/24/17 11/24/17 18:13 18:13 WBC 9.2 RBC 4.45 Hgb 12.8 Hct 40.0 MCV 89.9 MCH 28.8 MCHC 32.0 RDW 14.4 Plt Count 276 MPV 8.4 Neut % (Auto) 78.7 H Lymph % (Auto) 16.7 Angelina % (Auto) 2.8 Eos % (Auto) 1.0 Baso % (Auto) 0.8 Neut # (Auto) 7.3 Lymph # (Auto) 1.5 Angelina # (Auto) 0.3 Eos # (Auto) 0.1 Baso # (Auto) 0.1 WBC Differential . Differential Comment Auto diff final Sodium 137 Potassium 4.3 Chloride 100 Carbon Dioxide 27.6 Anion Gap 9 BUN 15 Creatinine 0.89 Estimated GFR 75 L POC Glucose Random Glucose 137 H Calcium 9.7 Total Bilirubin 0.3 AST 18 ALT 16 Alkaline Phosphatase 84 Troponin I Total Protein 7.7 Albumin 3.6 TSH - Impressions ITS Impressions Chest X-Ray 11/24/17 18:00 CONCLUSION: No acute cardiopulmonary disease. Discharge Plan - Discharge Disposition Patient Disposition: 01 Discharge Home - Discharge Condition Condition: Stable - Discharge Order Discharge Orders: Discharge Order (Routine); Ordered 11/25/17 Ordered By: Fidelina Jarquin - Physicians Team Primary Care Provider: Loraine Low Attending Provider: Rian Cardona
[2017-11-25 12:39] VITALS: RESP 16; TEMP 98.8; O2SAT 96
[2017-11-25 12:47] VITALS: BP 143/65; PULSE 77
[2017-11-25] MEDS ORDERED: Famotidine 20 MG Tablet PO SCH (21:00)
[2017-11-26] MEDS ORDERED: predniSONE 20 MG Tablet PO SCH (09:00)
== END 2017-11-25 15:15 | disposition home or self-care (01) ==
LOC: NEPC 17:16 → NEDA 17:16 → NEPGCP 17:16
PROVIDERS: ADMIT Hospitalist; ATTEND Hospitalist
DX: E66.9 Obesity, unspecified; I10 Essential (primary) hypertension; E11.9 Type 2 diabetes mellitus without complications; E78.5 Hyperlipidemia, unspecified; T78.3XXA Angioneurotic edema, initial encounter; E03.9 Hypothyroidism, unspecified; E78.00 Pure hypercholesterolemia, unspecified

== ENCOUNTER 2018-02-04 05:22 | Inpatient (IN) ==
[2018-02-04] MEDS ORDERED: Dexamethasone Inj 20 MG/5 ML Vial IV.PUSH PRN (06:10)
[2018-02-04] MEDS ORDERED: Chlorhexidine 4% Topical 120 APPLIC/120 ML Bottle TOPICAL SCH (06:15)
[2018-02-04] MEDS ORDERED: Sodium Chlor 0.9% Inj 73.07 ML, Ropivacaine 0.5% PF Inj 24.63 ML, Ketorolac Inj 30 MG, ... P-ARTICULR SCH ×5 (06:15)
[2018-02-04] MEDS ORDERED: Chlorhexidine Gluconate 2% 1 Pack (2 Cloths) TOPICAL ONE (06:18)
[2018-02-04] MEDS ORDERED: Insulin NovoLIN Regular Correctional Sugar Inj SQ ONE (06:18)
[2018-02-04] MEDS ORDERED: Metoprolol Tartrate 25 MG Tablet PO ONE (06:18)
[2018-02-04] MEDS ORDERED: Sodium Chlor 0.9% Inj 500 ML IV.SIG SCH (07:00)
[2018-02-04] MEDS ORDERED: TRANEXAMIC ACID IV.SIG SCH ×2 (07:00→12:30)
[2018-02-04] MEDS ORDERED: Vancomycin Inj 1,000 MG in Sodium Chlor 0.9% Inj 250 ML IV.SIG SCH (07:00)
[2018-02-04] MEDS ORDERED: SODIUM CHLOR 0.9% IV.SIG SCH ×2 (07:00→12:30)
[2018-02-04] MEDS ORDERED: ceFAZolin 2 GM Premix Inj 2 GM/50 ML PIGGYBACK IV.SIG SCH (07:00)
[2018-02-04] MEDS ORDERED: Lidocaine 2% 100 MG/5 ML Syringe ONE (07:13)
[2018-02-04] MEDS ORDERED: Bupivacaine Liposomal PF 1.3% Inj 20 ML Vial ONE (07:14)
[2018-02-04] MEDS ORDERED: Clindamycin 900 mg/NS Premix 900 MG/50 ML PIGGYBACK IV.SIG SCH (07:45)
[2018-02-04] MEDS ORDERED: Bupivacaine/Dextrose 0.75% Inj 2 ML Ampul ONE (08:07)
[2018-02-04] MEDS ORDERED: Propofol Inj 500 MG/50 ML Vial ONE (08:08)
[2018-02-04] MEDS ORDERED: Neostigmine Inj 5 MG/5 ML Syringe IV.PUSH ONE (08:25)
[2018-02-04] MEDS ORDERED: Succinylcholine Inj 100 MG/5 ML Syringe IV.PUSH ONE (08:25)
[2018-02-04] MEDS ORDERED: Lidocaine PF 1% Inj 5 ML Syringe OTHER ONE (08:25)
[2018-02-04] MEDS ORDERED: Phenylephrine/NS 1000 MCG/10ML Syringe IV.PUSH ONE (08:25)
[2018-02-04] MEDS ORDERED: Glycopyrrolate Inj 1 MG/5 ML Syringe IV.PUSH ONE (08:25)
[2018-02-04] MEDS ORDERED: Aluminum/Magnesium/Simethacone Susp 30 ML UDC PO PRN (10:44)
[2018-02-04] MEDS ORDERED: Post-op Orders (for Pharmacy) OTHER STA (10:44)
[2018-02-04] MEDS ORDERED: Bisacodyl 10 MG Supp RECTAL PRN (10:44)
--- NOTE | 2018-02-04 10:47 | P.OP ---
- Preoperative Diagnosis (1) Osteoarthritis of left knee - Postoperative Diagnosis (1) Osteoarthritis of left knee Date of procedure: 02/04/18 Procedure: Left total knee arthroplasty Anesthesia: GETA, regional, spinal (Which failed so it was converted to general) Surgeon: Jose Bates MD Spot Remover: JOSE Dixon The surgical procedure was assisted by my Advanced Registered Nurse Practitioner. My PASS WORKER presence was necessary throughout this case for the manipulation and positioning of the surgical extremity. My PASS WORKER was assisting me throughout the duration of this procedure. The skill set of an Advance Registered Nurse Practitioner was medically necessary to complete this procedure. During the surgical case, the surgical nurse was working at the back table and the Advance Registered Nurse Practitioner was directly assisting me. Operation and Findings: IMPLANTS: DePuy Attune: Patella: size 41. Femur, posterior stabilized size 6. Tibia, rotating platform size 5. Tibial insert, rotating platform, posterior stabilized size 5 mm thickness. ESTIMATED BLOOD LOSS: 150 cc TOURNIQUET TIME: 48 minutes at 300 mmHg pressure. JUSTIFICATION FOR PROCEDURE: The patient has end-stage osteoarthritis to the knee. There is an attached conservative measures pathway form in the chart that describes the nonoperative measures that were undertaken prior to consideration of surgical management. The patient understood the risks and benefits of surgical management. See my office notes for further details PROCEDURE: The patient was brought back to the operative theatre. Adequate anesthesia was obtained. The patient received intravenous vancomycin and clindamycin. The lower extremity was prepped and draped in the usual sterile fashion.The leg was exsanguinated, the tourniquet was raised. A standard anterior incision was performed followed by medial parapatellar arthrotomy was performed. End-stage arthritis was identified. Osteotomy of the patella was performed. We drilled holes for the patella. We trialed the patella component. We placed an intramedullary guide into the distal femur. We ultimately resected 13 mm off of the distal femur in 5 degrees of valgus. The remnants of the ACL and PCL were resected. Osteotomy of the proximal tibia was performed, resecting 5 mm off of the medial side. This was done with 3 degrees of posterior slope using an extramedullary guide. The distal end of the guide was placed in the mid aspect of the ankle. The femur was sized, and four chamfer cuts were completed in 3 of external rotation. We then cut the central box in the distal femur to replace the PCL. We resected the remnants of the menisci and removed osteophytes off of the femur and tibia. We then trialed the knee. We punched the tibia for the keel, and then used standard technique to cement in components. Excess cement was removed. We trialed the knee again and the final polyethylene thickness was chosen to provide extension to 0 degrees, and flexion of 140 degrees to gravity. The ligaments were appropriately balanced. Lateral release was necessary to obtain excellent patellofemoral tracking. The tourniquet was released and adequate hemostasis was obtained. An intra- articular injection of a ropivacaine cocktail was injected. The posterior knee was inspected for excess cement, which was removed. The final polyethylene was put into position after thorough irrigation. We then closed deep fascia with a #2 Stratafix followed by skin with 2-0 Vicryl followed by Dermabond dressing. Postop plan is to weight-bear as tolerated. DVT prophylaxis will be performed with SCDs, HAL hose, early mobilization, and aspirin.
[2018-02-04] MEDS ORDERED: fentaNYL Citrate Inj 100 MCG/2 ML Ampul ONE (11:37)
[2018-02-04] MEDS ORDERED: *Meperidine Inj 25 MG/ML Vial PERIprocedural Use ONLY ONE (11:50)
--- NOTE | 2018-02-04 11:52 | P.CON ---
History of Present Illness Consult date: 02/04/18 Requesting Physician: Jose Bates Reason for Consult: Medical Management. Primary Care Provider: Loraine Low MD Chief Complaint: Left knee OA History of Present Illness: This is a pleasant 73 y/o female who was admitted today for elective procedure, with diagnosis of OA of the left knee status post Left total knee arthroplasty, by doctor Jose Bates. as we know she has DM II, Hypothyroidism, CAD, Seen in PACU status post Surgery, has pain on her left knee, but no other complaint. nurse present while I evaluated the patient. Review of Systems All other systems reviewed negative except as stated in HPI PMFSH - History History Provided By: Patient - Medical History Medical History: Medical History (Last Reviewed 02/04/18 @ 11:28 by Alistair Benedict) Arthritis Diabetes GERD (gastroesophageal reflux disease) H/O: hysterectomy HTN (hypertension) High cholesterol Thyroid disease - Surgical History Surgical History: Surgical History (Last Reviewed 02/04/18 @ 11:28 by Alistair Benedict) Hx of cholecystectomy Total knee replacement status - Family History Family History: Family History (Last Updated 11/24/17 @ 21:11 by JOSE Lino) Mother Hypertension - Tobacco History Second Hand Smoke Exposure: No Tobacco Use In Past 30 Days: No Smoking Status: Never smoker - Alcohol History How Often Do You Have a Drink Containing Alcohol: Never - Substance Use History Substance History: No History of Abuse - Travel History Recent Travel in the [place] Within the Last 8 Weeks: No Recent Travel Out of the Country Within the Last 8 Weeks: No Medications and Allergies Active Medications: Active Medications Hydrocodone Bitart/Acetaminophen (Edmond 5/325) 1 tab PO Q4H PRN PRN Reason: PAIN LESS THAN 5 ON SCALE Hydrocodone Bitart/Acetaminophen (Edmond 5/325) 2 tab PO Q6H PRN PRN Reason: PAIN SCALE 5 TO 10 Al Hydrox/Mg Hydrox/Simethicone (Mag-Al Plus Susp Liq) 30 ml PO Q6H PRN PRN Reason: INDIGESTION Al Hydroxide/Mg Hydroxide (Milk Of Magnesia Liq) 30 ml PO BID PRN PRN Reason: Mild Constipation Amlodipine Besylate (Norvasc) 5 mg PO DAILY INDIO Aspirin (Ecotrin) 81 mg PO BID [facility]IO Bisacodyl (Dulcolax Supp) 10 mg RECTAL DAILY PRN PRN Reason: SEVERE CONSITIPATION Chlorhexidine Gluconate (Hibiclens 4% Topical) 1 applicatio TOPICAL ONCE [facility] Stop: 02/08/18 06:14 Last Admin: 02/04/18 06:50 Dose: 1 applicatio Sodium Chloride 73.07 ml/Ropivacaine 24.63 ml/Ketorolac Tromethamine 30 mg/ Epinephrine HCl 0.5 mg/Clonidine HCl 80 mcg 0 ml P-ARTICULR ONCE [facility] Stop: 02/04/18 15:00 Last Admin: 02/04/18 10:00 Dose: 125 bag Dexamethasone Sodium Phosphate (Decadron Inj) 10 mg IV.PUSH LINOTYPE MECHANIC PRN PRN Reason: PRE-OP LINOTYPE MECHANIC TO OR Stop: 02/04/18 22:00 Last Admin: 02/04/18 07:25 Dose: 10 mg Dexamethasone Sodium Phosphate (Decadron Inj) 10 mg IV.PUSH ONCE ONE Stop: 02/05/18 08:01 Dicyclomine HCl (Bentyl) 10 mg PO QID [facility] Diphenhydramine HCl (Benadryl) 25 mg PO Q6H PRN PRN Reason: ITCHING Vancomycin HCl 1,000 mg/ (Sodium Chloride) 250 mls @ 250 mls/hr IV.SIG LINOTYPE MECHANIC [facility] Stop: 02/07/18 06:11 Last Admin: 02/04/18 07:30 Dose: 250 mls/hr Tranexamic Acid 1,250 mg/ (Sodium Chloride) 112.5 mls @ 200 mls/hr IV.SIG ONCE [facility] Stop: 02/04/18 15:00 Last Admin: 02/04/18 09:05 Dose: 200 mls/hr Lactated Ringer's (Lr 1000 Ml Inj) 1,000 mls @ 30 mls/hr IV.SIG .Q24H [facility] Stop: 02/05/18 06:29 Last Admin: 02/04/18 07:13 Dose: 30 mls/hr Sodium Chloride (Ns Inj) 500 mls @ 30 mls/hr IV.SIG .Q10H [facility] Last Admin: 02/04/18 07:40 Dose: Not Given Clindamycin/Sodium Chloride (Cleocin 900 Mg/Ns Premix) 900 mg in 50 mls @ 100 mls/hr IV.SIG LINOTYPE MECHANIC [facility] Stop: 02/07/18 07:44 Last Admin: 10/24/18 08:21 Dose: 100 mls/hr Sodium Chloride (Ns Inj) 1,000 mls @ 80 mls/hr IV.CONT .[id number] [facility] Tranexamic Acid / Sodium (Chloride) 100 mls @ 200 mls/hr IV.SIG ONCE ONE Stop: 02/04/18 11:13 Clindamycin/Sodium Chloride (Cleocin 900 Mg/Ns Premix) 900 mg in 50 mls @ 100 mls/hr IV.SIG Q8H [facility] Stop: 02/05/18 03:29 Insulin Aspart (Novolog Mix 70/30 Inj) 15 units SQ QPM [facility] Insulin Aspart (Novolog Mix 70/30 Inj) 20 units SQ QAM [facility] Lactulose (Lactulose Liq) 30 ml PO DAILY PRN PRN Reason: SEVERE CONSITIPATION Levothyroxine Sodium (Synthroid) 50 mcg PO DAILY [facility] Meclizine HCl (Antivert) 25 mg PO DAILY PRN PRN Reason: Dizziness Metformin HCl (Glucophage) 500 mg PO BID [facility] Metoprolol Tartrate (Lopressor) 12.5 mg PO BID [facility] Morphine Sulfate (Morphine Inj) 2 mg IV.PUSH Q3H PRN PRN Reason: BREAKTHROUGH PAIN Multivitamins/Minerals (Theragran-M) 1 tab PO BID [facility] Stop: 04/05/18 20:59 Nitroglycerin (Nitrostat Sl (Override)) 0.4 mg SL Q5-15M PRN PRN Reason: Angina Non-Formulary Medication (Hydrochlorothiazide [Hydrochlorothiazide]) 12.5 mg PO DAILY [facility] Non-Formulary Medication (Lovastatin [Lovastatin]) 40 mg PO QPM [facility] Non-Formulary Medication (Omeprazole [Omeprazole]) 20 mg PO DAILY PRN PRN Reason: GERD Ondansetron HCl (Zofran Inj) 4 mg IV.PUSH Q6H PRN PRN Reason: NAUSEA OR VOMITING Povidone Iodine (Betadine 7.5% Scrub) 1 applicatio TOPICAL ONCE [facility] Stop: 02/08/18 06:59 Senna/Docusate Sodium (Heather-Colace) 1 tab PO BID [facility] Sennosides (Senokot) 17.2 mg PO BID PRN PRN Reason: Moderate Constipation Sodium Chloride (Ns Flush) 2 ml IV.FLUSH BID [place]IO Sodium Chloride (Ns Flush) 2 ml IV.FLUSH PRN PRN PRN Reason: FLUSH AFTER USING IV ACCESS Zolpidem Tartrate (Ambien) 5 mg PO HS PRN PRN Reason: INSOMNIA Allergies Allergy/AdvReac Type Severity Reaction Status Date / Time cephalexin [From Keflex] Allergy Severe Swelling Verified 02/04/18 07:05 of Lip/Tongue/Throat codeine Allergy Severe Hives Verified 02/04/18 07:05 gabapentin Allergy Severe upper Verified 02/04/18 07:05 airway swelling penicillin G Allergy Severe Nausea Verified 02/04/18 07:05 Sulfa (Sulfonamide Allergy Severe Itching Verified 02/04/18 07:05 Antibiotics) Home Medications Medication Instructions Recorded Confirmed Type aspirin 81 mg PO DAILY 11/24/17 02/04/18 History dicyclomine 10 mg PO QID 11/24/17 02/04/18 History hydrochlorothiazide 12.5 mg PO DAILY 11/24/17 02/04/18 History insulin asp prt-insulin aspart 20 unit SUB-Q QAM 11/24/17 02/04/18 History [Novolog Mix 70-30 U-100 Insuln] levothyroxine 50 mcg PO DAILY 11/24/17 02/04/18 History lovastatin 40 mg PO QPM 11/24/17 02/04/18 History metformin 500 mg PO BID 11/24/17 02/04/18 History metoprolol tartrate 12.5 mg PO BID 11/24/17 02/04/18 History amlodipine 5 mg PO DAILY 01/19/18 02/04/18 History meclizine 25 mg PO DAILY PRN 01/19/18 02/04/18 History meloxicam 15 mg PO DAILY 01/19/18 02/04/18 History nitroglycerin 0.4 mg SUBLINGUAL Q5-15M PRN 01/19/18 02/04/18 History omeprazole 20 mg PO DAILY PRN 01/19/18 02/04/18 History insulin asp prt-insulin aspart 15 unit SUBCUT QPM 02/04/18 02/04/18 History [Novolog Mix 70-30 U-100 Insuln] Physical Exam Vital signs: Vital Signs 02/04/18 07:27 Temperature 98.5 F Pulse Rate 61 Respiratory Rate 20 Blood Pressure 136/62 Pulse Oximetry 99 Intake & Output 10/23/18 10/24/18 10/24/18 18:59 06:59 18:59 Intake Total 800 / 800 Output Total 450 / 450 Balance 350 / 350 Weight 125 kg Intake: Anesthesia Amount 800 / 800 Output: Estimated Blood Loss 100 / 100 Urine Amount (Catheter) 350 / 350 Indwelling Urethral Catheter 350 / 350 Other: Weight On Admission 125 kg Narrative: GENERAL: Obese patient, well-developed patient, in no apparent distress. CARDIOVASCULAR: Regular rate and rhythm without murmurs, gallops, or rubs. RESPIRATORY: Clear to auscultation. Breath sounds equal bilaterally. No wheezes , rales, or rhonchi. GASTROINTESTINAL: Abdomen soft, non-tender, nondistended. Normal active bowel sounds MUSCULOSKELETAL: Extremities without clubbing, cyanosis, Orthotics on left leg, CPM in place. NEURO: Alert & Oriented x4 to person, place, time, situation. Moves all ext x4 - Urinary Catheter Management Indwelling Urethral Catheter Cath placed during this visit: no Assessment and Plan - Plan 1. Severe Left knee OA status post Left total knee arthroplasty, by doctor Jose Bates. PT, OT, production stage manager, Pain management. 2. DM II on hold Metformin, will continue sliding scale 3. Hypothyroidism continue Hormonal management 4. CAD. continue Aspirin once recommended by Orthopedic surgery, continue Lopressor 5. Recent Angioedema secondary to Gabapentin 6. JOHNNY RT for CPAP. 7. Morbid Obesity strongly recommended diet and exercise. DVT prophylaxis with SCDs, Chemical prophylaxis as per Orthopedic surgery. Code Status: Full code. Discussed Condition With: patient and Nurse. Discharge Planning: As per Attending physician
[2018-02-04] MEDS ORDERED: Pantoprazole Sodium 20 MG DR Tablet PO PRN (12:00)
[2018-02-04] MEDS: Sod Chloride 0.9% Inj 1,000 ML IV.CONT SCH (12:02)
--- NOTE | 2018-02-04 12:10 | XR ---
EXAM DATE: 02/04/2018 10:42 AM EDT AGE/SEX: 73 years / Female INDICATIONS: post left knee surgery CLINICAL DATA: This is the patient's initial encounter. Patient reports that signs and symptoms have been present for 1 day and indicates a pain score of Nonresponsive. MEDICAL/SURGICAL HISTORY: Non-responsive. Non-responsive. COMPARISON: [facility] [place] (1 OR 2 VWS[place] 08/12/2012. . FINDINGS: Left knee arthroplasty in place. The arthroplasty components are in anatomic alignment. No acute bony fracture. Immediate postsurgical features in the soft tissues. CONCLUSION: 1. Left knee arthroplasty in anatomic alignment without acute fracture. Electronically signed by: Antwon Larsen MD 02/04/2018 12:08 PM EDT
[2018-02-04] MEDS ORDERED: *morphine SULFATE 4 MG/ML PERIprocedure ONLY ONE ×3 (12:42→15:38)
--- NOTE | 2018-02-04 12:53 | P.DCO ---
- Physical Therapy Physical Therapy: Gait training, Transfer training, bed to chair Knee: Total knee Left Lower Extremity Weight Bearing: Weight bearing as tolerated Left Lower Extremity Range of Motion: Active ROM - Nursing Dressing changes: Do not change dressing Additional instructions: first dressing change in the office - Certification Need for Home Health services: I have seen patient Migdalia Schaefer on 02/04/18. My clinical findings support the need for the requested home health care services because: Need for Home Health Services: Limited ability to care for self, High risk of falls Homebound Certification: I certify that my clinical findings support that this patient is homebound because: Homebound Certification: Post-op weakness, Unsteady gait/balance
[2018-02-04] MEDS ORDERED: Sugammadex Inj 200 MG/2 ML Vial IV.PUSH ONE (14:33)
[2018-02-04] MEDS ORDERED: Morphine Inj 4 MG/ML Vial IV.PUSH PRN (16:30)
[2018-02-04] MEDS: Clindamycin 900 mg/NS Premix 900 MG/50 ML PIGGYBACK IV.SIG SCH (16:45)
[2018-02-04] MEDS ORDERED: Insulin Aspart Prot 70/30 1,000 UNITS/10 ML Vial SQ SCH (17:00)
[2018-02-04] MEDS: Dicyclomine 10 MG Capsule PO SCH ×2 (19:17→20:39)
[2018-02-04] MEDS: Insulin Aspart Prot 70/30 1,000 UNITS/10 ML Vial SQ SCH (20:37)
[2018-02-04] MEDS: Senna/Docusate Sodium 8.6/50 MG Tablet PO SCH (20:38)
[2018-02-04] MEDS: Multivitamin/Minerals Therapeutic Tablet PO SCH (20:39)
[2018-02-04] MEDS: Metoprolol Tartrate 25 MG Tablet PO SCH (20:44)
[2018-02-04] MEDS ORDERED: Zolpidem Tartrate 5 MG Tablet PO PRN (21:00)
[2018-02-05] MEDS: Clindamycin 900 mg/NS Premix 900 MG/50 ML PIGGYBACK IV.SIG SCH ×2 (00:03→08:30)
[2018-02-05] MEDS: Sod Chloride 0.9% Inj 1,000 ML IV.CONT SCH (00:57)
[2018-02-05] MEDS ORDERED: Levothyroxine 50 MCG Tablet PO SCH (06:00)
[2018-02-05 07:15] LABS: Hematocrit 31.4 % (35.0-46.0); Hemoglobin 10.5 gm/dL (11.6-15.3)
--- NOTE | 2018-02-05 07:15 | P.PNOP ---
Subjective Interval history: The patient is resting comfortably in bed in no acute distress. The patient states her pain is mild. The patient does express interest in going home today with home health. Physical Exam Vital signs: Vital Signs 02/04/18 07:27 02/04/18 11:26 02/04/18 13:30 Temperature 98.5 F 97.7 F Pulse Rate 61 86 90 Respiratory Rate 20 20 17 Blood Pressure 136/62 134/64 143/62 H Pulse Oximetry 99 99 100 02/04/18 14:30 02/04/18 15:30 02/04/18 16:30 Temperature Pulse Rate 87 82 82 Respiratory Rate 20 11 L 18 Blood Pressure 109/55 L 123/56 L 116/55 L Pulse Oximetry 100 100 97 02/04/18 17:00 02/04/18 17:58 02/04/18 20:00 Temperature 97.8 F 97.3 F L 97.5 F L Pulse Rate 83 85 90 Respiratory Rate 14 16 18 Blood Pressure 109/51 L 101/56 L 117/63 Pulse Oximetry 99 98 98 02/04/18 21:00 02/05/18 00:00 02/05/18 00:19 Temperature 97.5 F L Pulse Rate 76 Respiratory Rate 18 18 18 Blood Pressure 102/56 L Pulse Oximetry 96 02/05/18 03:22 02/05/18 04:00 Temperature 97.3 F L Pulse Rate 72 Respiratory Rate 18 18 Blood Pressure 116/58 L Pulse Oximetry 97 Intake & Output 02/04/18 02/05/18 02/05/18 18:59 06:59 18:59 Intake Total 1330 / 1330 1260 / 1260 Output Total 1150 / 1150 400 / 400 Balance 180 / 180 860 / 860 Weight 125 kg 133.3 kg Intake: IV 50 / 50 1050 / 1050 NS Inj 1,000 ML @ 80 mls/hr IV. 1000 / 1000 CONT .[id number] [facility]IO Rx#:[id number] Cleocin 900 mg/NS Premix 900 mg 50 / 50 50 / 50 In 50 ml @ 100 mls/hr IV.SIG Q8H [facility]IO Rx#:[id number] Oral 480 / 480 210 / 210 Anesthesia Amount 800 / 800 Output: Urine 400 / 400 Estimated Blood Loss 100 / 100 Urine Amount (Catheter) 1050 / 1050 Indwelling Urethral Catheter 1050 / 1050 Other: # Voids 1 Date of Last Bowel Movement 02/03/18 02/03/18 # Bowel Movements 0 Narrative: The patient's dressing is clean, dry, and intact. EHL/TA/G are intact. 2+ pedal pulse. The patient's calf is soft and nontender. Sensation is intact to light touch distally. Knee immobilizer is in place. - Urinary Catheter Management Indwelling Urethral Catheter Cath placed during this visit: yes Reason for continuing: Hourly intake/output Insertion date: 02/04/18 Insertion time: 11:00 Results - Labs CBC & Chem 7: 02/05/18 06:45 Laboratory Results - last 24 hr 02/04/18 02/04/18 02/04/18 07:13 07:15 12:03 POC Glucose 89 199 H Blood Type O Positive Blood Type Recheck Not needed Antibody Screen Negative 02/04/18 02/04/18 02/05/18 17:48 19:34 03:01 POC Glucose 223 H 261 H 150 H Blood Type Blood Type Recheck Antibody Screen - Imaging Impressions Knee X-Ray 02/04/18 10:42 CONCLUSION: 1. Left knee arthroplasty in anatomic alignment without acute fracture. - Procedures Left total knee arthroplasty Assessment and Plan - Problem List (1) Status post total knee replacement, left Code(s): Z96.652 - Presence of left artificial knee joint Status: Acute (2) Osteoarthritis of left knee Code(s): M17.12 - Unilateral primary osteoarthritis, left knee Status: Acute - Assessment and Plan POD #1: Left total knee arthroplasty 1. Weightbearing as tolerated on left lower extremity. 2. Aspirin 81 mg twice a day for DVT prophylaxis. 3. Ice as needed for swelling. 4. Stable per ortho for discharge to home health today. 5. The patient will follow up with Dr. Bates and/or JOSE Hackett as previously scheduled.
[2018-02-05] MEDS ORDERED: Dexamethasone Inj 20 MG/5 ML Vial IV.PUSH ONE (08:00)
[2018-02-05] MEDS ORDERED: Insulin Aspart Prot 70/30 1,000 UNITS/10 ML Vial SQ SCH (08:00)
[2018-02-05] MEDS: Senna/Docusate Sodium 8.6/50 MG Tablet PO SCH (08:48)
[2018-02-05] MEDS: Multivitamin/Minerals Therapeutic Tablet PO SCH (08:49)
[2018-02-05] MEDS: Dicyclomine 10 MG Capsule PO SCH ×3 (08:50→18:18)
[2018-02-05] MEDS ORDERED: amLODIPine 5 MG Tablet PO SCH (09:00)
[2018-02-05] MEDS: Metoprolol Tartrate 25 MG Tablet PO SCH (09:05)
--- NOTE | 2018-02-05 09:32 | P.DCO ---
- Physical Therapy Order: Evaluate and treat, Improve ambulation, Strength and gait training - Home Health Nursing Order: Medical education, Signs/symptoms of disease process, Diabetic education , Nursing assessment with vital signs - Case Management Consult No - Certification I have seen patient Migdalia Schaefer on 02/05/18. My clinical findings support the need for the requested home health care services because: Limited mobility due to disease progression, Deconditioned with increased weakness, Limited ability to care for self, High risk of falls, Infection with risk of complications I certify that my clinical findings support that this patient is homebound because: Post-op weakness, Unsteady gait/balance, Unsafe to leave home unassisted, Need for psychosocial assistance, Unable to use public transportation
--- NOTE | 2018-02-05 09:36 | P.PN ---
Subjective Interval history: Follow-up for left total knee arthroplasty. Patient is currently doing well. No acute concerns. No fever or chills. Orthopedic surgery is discharging patient today. Physical Exam Vital signs: Vital Signs 02/04/18 11:26 02/04/18 13:30 02/04/18 14:30 Temperature 97.7 F Pulse Rate 86 90 87 Respiratory Rate 20 17 20 Blood Pressure 134/64 143/62 H 109/55 L Pulse Oximetry 99 100 100 02/04/18 15:30 02/04/18 16:30 02/04/18 17:00 Temperature 97.8 F Pulse Rate 82 82 83 Respiratory Rate 11 L 18 14 Blood Pressure 123/56 L 116/55 L 109/51 L Pulse Oximetry 100 97 99 02/04/18 17:58 02/04/18 20:00 02/04/18 21:00 Temperature 97.3 F L 97.5 F L Pulse Rate 85 90 Respiratory Rate 16 18 18 Blood Pressure 101/56 L 117/63 Pulse Oximetry 98 98 02/05/18 00:00 02/05/18 00:19 02/05/18 03:22 Temperature 97.5 F L Pulse Rate 76 Respiratory Rate 18 18 18 Blood Pressure 102/56 L Pulse Oximetry 96 02/05/18 04:00 02/05/18 08:00 Temperature 97.3 F L 97.6 F Pulse Rate 72 73 Respiratory Rate 18 17 Blood Pressure 116/58 L 110/58 L Pulse Oximetry 97 95 Intake & Output 02/04/18 02/05/18 02/05/18 18:59 06:59 18:59 Intake Total 1330 / 1330 1260 / 1260 Output Total 1150 / 1150 400 / 400 Balance 180 / 180 860 / 860 Weight 125 kg 133.3 kg Intake: IV 50 / 50 1050 / 1050 NS Inj 1,000 ML @ 80 mls/hr IV. 1000 / 1000 CONT .[id number] [facility] Rx#:[id number] Cleocin 900 mg/NS Premix 900 mg 50 / 50 50 / 50 In 50 ml @ 100 mls/hr IV.SIG Q8H [facility] Rx#:[id number] Oral 480 / 480 210 / 210 Anesthesia Amount 800 / 800 Output: Urine 400 / 400 Estimated Blood Loss 100 / 100 Urine Amount (Catheter) 1050 / 1050 Indwelling Urethral Catheter 1050 / 1050 Other: # Voids 1 Date of Last Bowel Movement 02/03/18 02/03/18 # Bowel Movements 0 Narrative: GENERAL: Alert, oriented x3, NAD. SKIN: Warm and dry. HEAD: Normocephalic. EYES: No scleral icterus. No injection or drainage. NECK: Supple, trachea midline. No JVD or lymphadenopathy. CARDIOVASCULAR: Regular rate and rhythm without murmurs, gallops, or rubs. RESPIRATORY: Breath sounds equal bilaterally. No accessory muscle use. GASTROINTESTINAL: Abdomen soft, non-tender, nondistended. MUSCULOSKELETAL: No cyanosis, or edema. BACK: Nontender without obvious deformity. No CVA tenderness. - Urinary Catheter Management Indwelling Urethral Catheter Cath placed during this visit: yes Reason for continuing: Hourly intake/output Insertion date: 02/04/18 Insertion time: 11:00 Results - Labs CBC & Chem 7: 02/05/18 06:45 Laboratory Results - last 24 hr 02/04/18 02/04/18 02/04/18 12:03 17:48 19:34 Hgb Hct POC Glucose 199 H 223 H 261 H 02/05/18 02/05/18 02/05/18 03:01 06:45 09:10 Hgb 10.5 L Hct 31.4 L POC Glucose 150 H 131 H - Imaging Impressions Knee X-Ray 02/04/18 10:42 CONCLUSION: 1. Left knee arthroplasty in anatomic alignment without acute fracture. - Procedures Left total knee arthroplasty Assessment and Plan - Plan Ms. Schaefer is a pleasant 73-year-old -[place] female with a history of diabetes mellitus and severe osteoarthritis of her left knee who underwent elective left total knee arthroplasty on 02/04/2018. Severe left knee osteoarthritis -Per orthopedic recommendations, weightbearing as tolerated on left lower extremity. Aspirin 81 mg twice daily. -Discharge home today with home health. Diabetes mellitus Hypothyroidism Hypertension Hyperlipidemia -Continue sliding scale insulin, metformin 500 mg p.o. twice daily. -Continue amlodipine 5 mg p.o. daily, HCTZ, pravastatin. Full code. Aspirin BID.
[2018-02-05 12:04] VITALS: O2SAT 94
[2018-02-05] MEDS: Insulin Aspart Prot 70/30 1,000 UNITS/10 ML Vial SQ SCH (17:00)
[2018-02-05 17:18] VITALS: BP 115/58; PULSE 88; RESP 18; TEMP 98
--- NOTE | 2018-02-06 11:36 | P.DS ---
Date of admission: 02/04/18 05:22 Primary care physician: Loraine Low MD Attending physician on discharge: Jose Bates Anticipated date of discharge: 02/05/18 Brief History from admission: The patient was admitted to the hospital for severe OA of the left knee to have a left TKA DS: Diagnosis - Discharge Diagnosis (1) Status post total knee replacement, left Status: Acute (2) Osteoarthritis of left knee Status: Acute DS: Summary Hospital Course: The patient was admitted to the hospital for severe OA of the left knee to have a left TKA. The patient's surgery went well with no complications. The patient is WBAT on the left knee. The patient is on a diabetic diet. The patient was placed on ASA 81 mg BID post op for DVT prophylaxis. The patient was discharged home with home health and will f/u in the office as previously scheduled with Dr. Bates or Mert Hackett APRN. - Time Spent with Patient Total time spent providing and/or coordinating discharge services: Greater than 30 minutes - Quality: VTE Deep Vein Thrombosis/Pulmonary Embolism Present on Admission: No Exam Vital signs: Vital Signs 02/05/18 12:00 02/05/18 12:28 02/05/18 17:16 Temperature 97.4 F L 98.0 F Pulse Rate 81 88 Respiratory Rate 18 16 18 Blood Pressure 122/59 L 115/58 L Pulse Oximetry 94 L 94 L 02/05/18 18:19 Temperature Pulse Rate Respiratory Rate 18 Blood Pressure Pulse Oximetry Intake & Output 02/05/18 02/06/18 02/06/18 18:59 06:59 18:59 Intake Total 1000 / 1000 Balance 1000 / 1000 Intake: Oral 1000 / 1000 Other: # Voids 3 Date of Last Bowel Movement 02/03/18 Narrative: The patient's dressing is clean, dry, and intact. EHL/TA/G are intact. 2+ pedal pulse. The patient's calf is soft and nontender. Sensation is intact to light touch distally. Knee immobilizer is in place. Results Procedures completed during hospitalization: Left total knee arthroplasty Labs on day of discharge: Labs from last 24 hours 02/05/18 02/05/18 17:40 12:35 POC Glucose 214 H 189 H - Impressions ITS Impressions Knee X-Ray 02/04/18 10:42 CONCLUSION: 1. Left knee arthroplasty in anatomic alignment without acute fracture. Discharge Plan - Discharge Disposition Patient Disposition: W/Home Health Service - Discharge Condition Condition: Stable - Discharge Order Discharge Orders: Discharge Order (Routine); Ordered 02/04/18 Ordered By: Senthil Hackett - Discharge Details Anticipated Discharge Date: 02/05/18 - Physicians Team Primary Care Provider: Loraine Low Attending Provider: Jose Bates Other Providers: Satish Alas DO ; Nicholas Peterson ; Zachary Trinidad MD - Rxs /Orders / Referrals /Forms Prescriptions: Continue amlodipine 5 mg Tablet 5 mg PO DAILY dicyclomine 10 mg Capsule 10 mg PO QID hydrochlorothiazide 12.5 mg Tablet 12.5 mg PO DAILY insulin asp prt-insulin aspart [Novolog Mix 70-30 U-100 Insuln] 100 unit/mL ( 70-30) Solution 20 unit SUB-Q QAM insulin asp prt-insulin aspart [Novolog Mix 70-30 U-100 Insuln] 100 unit/mL ( 70-30) Solution 15 unit SUBCUT QPM levothyroxine 50 mcg Tablet 50 mcg PO DAILY lovastatin 40 mg Tablet 40 mg PO QPM meclizine 25 mg Tablet 25 mg PO DAILY PRN (Reason: Dizziness) metformin 500 mg Tablet 500 mg PO BID metoprolol tartrate 25 mg Tablet 12.5 mg PO BID nitroglycerin 0.4 mg Tablet, Sublingual 0.4 mg SUBLINGUAL Q5-15M PRN (Reason: Angina) omeprazole 20 mg Capsule,Delayed Release(Dr/Ec) 20 mg PO DAILY PRN (Reason: GERD) Discontinued aspirin 81 mg Tablet,Delayed Release (Dr/Ec) 81 mg PO DAILY meloxicam 15 mg Tablet 15 mg PO DAILY Ambulatory Orders / Order Sets / DME: Adjustable Commode 3-in-1 (1 each) (Routine) Location: Determined by Patient Ordered By: Senthil Hackett CPM - Continuous Passive Motion Machine (1 each) (Routine) Location: Determined by Patient Ordered By: Senthil Hackett Walker With Front Wheels (1 each) (Routine) Location: Determined by Patient Ordered By: Senthil Hackett Referrals: Jose Bates MD [Physician] - See Instructions (f/u in the office as previously scheduled with Dr. Bates or Mert Hackett APRN) Loraine Low MD [Primary Care Provider] - See Instructions - Discharge Instructions Patient Printed Instructions: How to Choose and Use a Walker (GEN), Diabetes Insipidus (GEN), Wound Healing and Your Diet (DC), Knee Replacement (DC) Additional Instructions: YOUR PRESCRIPTIONS WERE SENT TO [facility] PER DR. GLEASON 'S OFFICE. YOUR HOME HEALTH WILL BEGIN TOMORROW AT YOU HOME.
== END 2018-02-05 20:10 | disposition home health service (06) ==
LOC: HSDI 05:22 → N06 17:19
PROVIDERS: ADMIT Orthopaedic Surgery; ATTEND Orthopaedic Surgery